=== PATIENT | male | born 1990 | race African-American/Black ===

== ENCOUNTER 2017-12-07 17:35 | Observation (INO) | payer OTHER ==
[2017-12-07 19:00] VITALS: BP 173/101; PULSE 140; RESP 20; TEMP 99.2; O2SAT 98
[2017-12-07] MEDS ORDERED: SODIUM CHLOR 0.9% 1000 ML INJ 1,000 ML IV ONE ×2 (19:00→23:15)
[2017-12-07] MEDS ORDERED: HALOPERIDOL LACTATE 5 MG/ML AMP IM ONE (19:00)
[2017-12-07] MEDS ORDERED: LORazepam 2 MG/ML VIAL IM ONE (19:00)
--- NOTE | 2017-12-07 19:14 | PD ---
HPI Chief Complaint: OD/ Ingestion Time Seen by Provider: 18:52 Travel History International Travel<30 days: No Contact w/Intl Traveler<30days: No Traveled to known affect area: No History of Present Illness HPI This patient is brought in under police Bagley act. He was found acting jittery and paranoid and confused. He is unable or unwilling to provide any history or review of systems. He is volatile and uncooperative. He refuses to have any tests done. He will require chemical and physical restraints for his and the staff safety. [facility] Social History Alcohol Use: No Tobacco Use: No Substance Use: Yes Allergies-Medications (Allergen,Severity, Reaction): Coded Allergies: No Allergy Information Available (Unverified , 12/07/17) Review of Systems ROS Limitations: Clinical Condition, Intoxication, Altered Mental Status, Uncooperative, Refused, Combative Physical Exam Narrative GENERAL: Well-nourished, well-developed patient who is agitated and hostile and combative. SKIN: Focused skin assessment reveals no rash and nodules. Skin is Warm and diaphoretic. HEAD: Abrasion to the forehead and nasal bridge. Normocephalic. EYES: Pupils equal and round. No scleral icterus. No injection or drainage. ENT: No nasal bleeding or discharge. Mucous membranes pink and moist. NECK: Trachea midline. No JVD. CARDIOVASCULAR: Regular rate and rhythm. No murmur appreciated. RESPIRATORY: No accessory muscle use. Clear to auscultation. Breath sounds equal bilaterally. GASTROINTESTINAL: Abdomen soft, non-tender, nondistended. Hepatic and splenic margins not palpable. MUSCULOSKELETAL: No obvious deformities. No clubbing. No cyanosis. No edema. NEUROLOGICAL: Awake and alert. No obvious cranial nerve deficits. Motor and sensation impossible to test. Has rapid and pressured speech. PSYCHIATRIC: Aggressive and agitated mood and affect; insight and judgment poor aggressive and agitated Data Data Last Documented VS Vital Signs Date Time Temp Pulse Resp B/P (MAP) Pulse Ox O2 Delivery O2 Flow Rate FiO2 12/07/17 23:13 106 18 120/71 (87) 97 Room Air 12/07/17 20:34 98.9 12/07/17 19:30 2.00 Orders Orders Complete Blood Count With Diff (12/07/17 18:31) Comprehensive Metabolic Panel (12/07/17 18:31) Thyroid Stimulating Hormone (12/07/17 18:31) Psych Screen (12/07/17 18:31) Drug Screen, Random Urine (12/07/17 18:31) Alcohol (Ethanol) (12/07/17 18:31) Haloperidol Inj (Haldol Inj) (12/07/17 19:00) Lorazepam Inj (Ativan Inj) (12/07/17 19:00) Restraints Violent (12/07/17 18:57) Iv Access Insert/Monitor (12/07/17 18:57) Electrocardiogram (12/07/17 ) Stamp Analyst / Telemetry SHARRON.Q8H (12/07/17 18:57) Sodium Chlor 0.9% 1000 Ml Inj (Ns 1000 M (12/07/17 19:00) Tylenol (Acetaminophen) (12/07/17 18:57) Salicylates (Aspirin) (12/07/17 18:57) Ct Brain W/O Iv Contrast(Rout) (12/07/17 ) Ct Cerv Spine W/O Contrast (12/07/17 ) Lorazepam Inj (Ativan Inj) (12/07/17 19:30) Sodium Chlor 0.9% 1000 Ml Inj (Ns 1000 M (12/07/17 23:15) Consult Psychiatry (12/07/17 ) Place In Observation (12/07/17 ) Vital Signs (Adult) Q4H (12/07/17 23:20) Neuro Checks Q4H (12/07/17 23:20) Activity Oob With Assistance (12/07/17 23:20) Stamp Analyst / Telemetry .CONTINUOUS (12/07/17 23:20) Intake + Output SHARRON.QSHIFT (12/07/17 23:20) Diet Heart Healthy (12/08/17 Breakfast) Sodium Chlor 0.9% 1000 Ml Inj (Ns 1000 M (12/07/17 23:20) Sodium Chloride 0.9% Flush (Ns Flush) (12/07/17 23:30) Sodium Chloride 0.9% Flush (Ns Flush) (12/08/17 09:00) Ondansetron Inj (Zofran Inj) (12/07/17 23:30) Comprehensive Metabolic Panel (12/08/17 06:00) Complete Blood Count With Diff (12/08/17 06:00) Scd Bilateral/Knee High SHARRON.BID (12/07/17 23:20) Benjie Bilateral/Knee High SHARRON.QSHIFT (12/07/17 23:21) Docusate Sodium-Senna (Aliyah-Colace) (12/08/17 09:00) Magnesium Hydroxide Liq (Milk Of Magnesi (12/07/17 23:30) Sennosides (Senokot) (12/07/17 23:30) Bisacodyl Supp (Dulcolax Supp) (12/07/17 23:30) Lactulose Liq (Lactulose Liq) (12/07/17 23:30) (Hub Use Only)Inp Phy Cons/Ref (12/07/17 ) Labs Laboratory Tests Test 12/07/17 19:15 12/07/17 19:30 Blood Urea Nitrogen 20 MG/DL Creatinine 1.90 MG/DL Random Glucose 105 MG/DL Total Protein 7.9 GM/DL Albumin 4.3 GM/DL Calcium Level 9.2 MG/DL Alkaline Phosphatase 125 U/L Aspartate Amino Transf (AST/SGOT) 320 U/L Alanine Aminotransferase (ALT/SGPT) 111 U/L Total Bilirubin 1.0 MG/DL Sodium Level 139 MEQ/L Potassium Level 3.6 MEQ/L Chloride Level 103 MEQ/L Carbon Dioxide Level 20.3 MEQ/L Anion Gap 16 MEQ/L Estimat Glomerular Filtration Rate 49 ML/MIN Thyroid Stimulating Hormone 3rd Gen 0.785 uIU/ML Salicylates Level LESS THAN 1.7 MG/DL Acetaminophen Level LESS THAN 2.0 MCG/ML Ethyl Alcohol Level LESS THAN 3 MG/DL White Blood Count 18.3 TH/MM3 Red Blood Count 4.53 MIL/MM3 Hemoglobin 15.0 GM/DL Hematocrit 43.2 % Mean Corpuscular Volume 95.5 FL Mean Corpuscular Hemoglobin 33.2 PG Mean Corpuscular Hemoglobin Concent 34.7 % Red Cell Distribution Width 13.0 % Platelet Count 263 TH/MM3 Mean Platelet Volume 10.1 FL Neutrophils (%) (Auto) 73.7 % Lymphocytes (%) (Auto) 14.8 % Monocytes (%) (Auto) 11.1 % Eosinophils (%) (Auto) 0.1 % Basophils (%) (Auto) 0.3 % Neutrophils # (Auto) 13.5 TH/MM3 Lymphocytes # (Auto) 2.7 TH/MM3 Monocytes # (Auto) 2.0 TH/MM3 Eosinophils # (Auto) 0.0 TH/MM3 Basophils # (Auto) 0.1 TH/MM3 CBC Comment DIFF FINAL Differential Comment MDM Medical Decision Making Medical Screen Exam Complete: Yes Emergency Medical Condition: Yes Medical Record Reviewed: Yes Differential Diagnosis Drug intoxication, alcohol intoxication, metabolic abnormality Narrative Course I have reviewed the patient's electronic medical record. I reviewed his police initiated Bagley act It is unknown at this patient has any psychiatric history. I suspect he is under the influence of drugs. Unclear what. He refuses to answer questions. He is very volatile and combative and hostile. For his safety he is placed in leather restraints and I gave him a dose of Haldol and Ativan. I have ordered an extensive workup. CBC revealed leukocytosis of 18,000 Metabolic profile reveals a few minor abnormalities but nothing emergent Alcohol levels negative Brain CT is negative Cervical spine CT shows some degenerative changes but no fracture He is yet to provide urine for tox screen After 6 hours he is still altered and not stable for either psych admission or discharge. I reviewed with hospitalist who will admit for toxic encephalopathy. He is still under Bagley act. Critical Care Narrative Aggregate critical care time was 35 minutes. Time to perform other separately billable procedures was not included in the critical care time. My time did not include minutes spent treating any other patients simultaneously or on activities that did not directly contribute to the patient's treatment. The services I provided to this patient were to treat and/or prevent clinically significant deterioration that could result in: Cardiac arrhythmia, cardiopulmonary arrest I provided critical care services requiring my management, as noted below: Chart data review, documentation time, medication orders and management, vital sign assessments/reviewing monitor data, ordering and reviewing lab tests, ordering and interpreting/reviewing x-rays and diagnostic studies, care of the patient and discussion of the patient with the admitting physicians. Diagnosis Primary Impression: Toxic metabolic encephalopathy Admitting Information Admitting Physician Requests: Vamsi Ahmadi MD Dec 07, 2017 19:14
[2017-12-07 19:30] VITALS: BP 126/61; PULSE 128; RESP 14; O2SAT 97
[2017-12-07] MEDS ORDERED: LORazepam 2 MG/ML VIAL IV PUSH ONE (19:30)
[2017-12-07 20:03] LABS: AUTOMATED NEUTROPHIL # 13.5 TH/MM3 (1.8-7.7); BASOPHIL # 0.1 TH/MM3 (0-0.2); BASOPHIL % 0.3 % (0.0-2.0); EOSINOPHIL % 0.1 % (0.0-4.0); HEMATOCRIT 43.2 % (39.0-51.0); LYMPH % 14.8 % (9.0-44.0); LYMPHOCYTE # 2.7 TH/MM3 (1.0-4.8); MEAN CELL VOLUME 95.5 FL (80.0-100.0); MEAN CORPUSCULAR HEMOGLOBIN 33.2 PG (27.0-34.0); MEAN CORPUSCULAR HGB CONC 34.7 % (32.0-36.0); MEAN PLATELET VOLUME 10.1 FL (7.0-11.0); MONO % 11.1 % (0.0-8.0); NEUT % 73.7 % (16.0-70.0); PLATELET COUNT 263 TH/MM3 (150-450); RED BLOOD COUNT 4.53 MIL/MM3 (4.50-5.90); WHITE BLOOD COUNT 18.3 TH/MM3 (4.0-11.0)
--- NOTE | 2017-12-07 20:33 | RADRPT ---
EXAM DATE/TIME: 12/07/2017 20:16 [facility] COMPARISON: No previous studies available for comparison. INDICATIONS : Trauma, possible seizure today. RADIATION DOSE: 56.35 CTDIvol (mGy) MEDICAL HISTORY : Non-responsive. SURGICAL HISTORY : Non-responsive. ENCOUNTER: Initial ACUITY: 1 day PAIN SCALE: Non-responsive LOCATION: Bilateral head TECHNIQUE: Multiple contiguous axial images were obtained of the head. Using automated exposure control and adj ustment of the mA and/or kV according to patient size, radiation dose was kept as low as reasonably a chievable to obtain optimal diagnostic quality images. DICOM format image data is available electro nically for review and comparison. FINDINGS: CEREBRUM: The ventricles are normal for age. No evidence of midline shift, mass lesion, hemorrhage or acute in farction. No extra-axial fluid collections are seen. POSTERIOR FOSSA: The cerebellum and brainstem are intact. The 4th ventricle is midline. The cerebellopontine angle i s unremarkable. EXTRACRANIAL: The visualized portion of the orbits is intact. SKULL: The calvaria is intact. No evidence of skull fracture. CONCLUSION: No acute disease. Sonido Barrow MD on December 07, 2017 at 20:30 Board Certified Radiologist. This report was verified electronically.
[2017-12-07 20:34] VITALS: BP 182/95; PULSE 83; RESP 15; TEMP 98.9; O2SAT 99
[2017-12-07 20:35] LABS: ALT (GPT) 111 U/L (12-78)
--- NOTE | 2017-12-07 20:39 | RADRPT ---
EXAM DATE/TIME: 12/07/2017 20:18 [facility] COMPARISON: No previous studies available for comparison. INDICATIONS : Trauma, possible seizure today. RADIATION DOSE: 24.00 CTDIvol (mGy) MEDICAL HISTORY : Non-responsive. SURGICAL HISTORY : Non-responsive. ENCOUNTER: Initial ACUITY: 1 day PAIN SCALE: Non-responsive LOCATION: Bilateral neck TECHNIQUE: Volumetric scanning of the cervical spine was performed. Multiplanar reconstructions in the sagittal, coronal and oblique axial planes were performed. Using automated exposure control and adjustment o f the mA and/or kV according to patient size, radiation dose was kept as low as reasonably achievable to obtain optimal diagnostic quality images. DICOM format image data is available electronically f or review and comparison. FINDINGS: VERTEBRAE: Normal vertebral body height. ALIGNMENT: Scoliosis of the cervical spine is noted. No evidence of subluxation. C2-C3: The bony spinal canal is normal in size. No evidence of disc bulge or herniation. The neural forami na are bilaterally patent. C3-C4: The bony spinal canal is normal in size. No evidence of disc bulge or herniation. The neural forami na are bilaterally patent. C4-C5: The bony spinal canal is normal in size. No evidence of disc bulge or herniation. The neural forami na are bilaterally patent. C5-C6: The bony spinal canal is normal in size. No evidence of disc bulge or herniation. The neural forami na are bilaterally patent. C6-C7: The bony spinal canal is normal in size. No evidence of disc bulge or herniation. The neural forami na are bilaterally patent. C7-T1: The bony spinal canal is normal in size. No evidence of disc bulge or herniation. The neural forami na are bilaterally patent. CONCLUSION: 1. No acute fracture or prevertebral soft tissue swelling. 2. Scoliosis of the cervical spine. Sonido Barrow MD on December 07, 2017 at 20:35 Board Certified Radiologist. This report was verified electronically.
[2017-12-07 20:44] LABS: ALKALINE PHOSPHATASE 125 U/L (45-117); TOTAL PROTEIN 7.9 GM/DL (6.4-8.2)
[2017-12-07 20:47] LABS: ALBUMIN 4.3 GM/DL (3.4-5.0); AST (GOT) 320 U/L (15-37); BICARBONATE 20.3 MEQ/L (21.0-32.0); BLOOD UREA NITROGEN 20 MG/DL (7-18); CALCIUM 9.2 MG/DL (8.5-10.1); CHLORIDE 103 MEQ/L (98-107); GLOMERULAR FILTRATION RATE 49 ML/MIN (>89); GLUCOSE,RANDOM 105 MG/DL (74-106); SODIUM (NA) 139 MEQ/L (136-145)
[2017-12-07 21:01] VITALS: BP 131/71; PULSE 111; RESP 12; O2SAT 96
[2017-12-07 23:13] VITALS: BP 120/71; PULSE 106; RESP 18; O2SAT 97
--- NOTE | 2017-12-07 23:22 | HHI.HP ---
[facility] Unknown Admission Diagnosis Diagnoses: (1) Encephalopathy Diagnosis: Principal (2) Drug intoxication Diagnosis: Principal (3) Renal insufficiency Diagnosis: Principal (4) Elevated LFTs Diagnosis: Principal Travel History International Travel<30 Days: No Contact w/Intl Traveler <30 Da: No Traveled to Known Affected Are: No History of Present Illness This is a 37-year-old male with unknown PMH was brought to the ER by Police under Bagley Act secondary to confusion, paranoia and apparent drug ingestion. On arrival, patient was significantly agitated, uncooperative and combative. He required physical and chemical restraints. Has been monitored in ER for several hours w/ persistent lethargy. Pt unable to be medically cleared at this time, therefore we were asked to admit. Unable to obtain any history from patient due to acute encephalopathy. On arrival, BP 182/95, HR 128, O2 sat 99% on RA, Afebrile. BP currently 120/71, HR 106. WBC 18.3. Creatinine 1.90, no previous labs for comparison. LFTs elevated, no previous labs for comparison. Alcohol negative. CT Head with no acute findings. CT C-spine negative. S/p IVF in ER. Review of Systems Except as stated in HPI: all other systems reviewed are Neg ROS: Unable to obtain secondary to AMS. Past Family Social History Past Medical History PMH: None Past Surgical History PAST SURGICAL HISTORY: Unknown Allergies: Coded Allergies: No Allergy Information Available (Unverified , 12/07/17) Family History PAST FAMILY HISTORY: Unknown Social History PAST SOCIAL HISTORY: Unknown Physical Exam Vital Signs Vital Signs Date Time Temp Pulse Resp B/P (MAP) Pulse Ox O2 Delivery O2 Flow Rate FiO2 12/07/17 23:13 106 18 120/71 (87) 97 Room Air 12/07/17 21:01 111 12 131/71 (91) 96 Room Air 12/07/17 20:34 98.9 83 15 182/95 (124) 99 Room Air 12/07/17 19:30 128 14 126/61 (82) 97 Nasal Cannula 2.00 12/07/17 19:26 133 12/07/17 19:00 99.2 140 20 173/101 (125) 98 Physical Exam PE: GENERAL: Middle-aged male in no acute distress, sleeping, rouses to voice, not answering questions. HEENT: PERRLA, EOMI. No scleral icterus or conjunctival pallor. No lid lag or facial droop. CARDIOVASCULAR: Regular rate and rhythm. No obvious murmurs to auscultation. No chest tenderness to palpation. RESPIRATORY: No obvious rhonchi or wheezing. Clear to auscultation. Breath sounds equal bilaterally. GASTROINTESTINAL: Abdomen soft, non-tender, nondistended. BS normal. MUSCULOSKELETAL: Extremities without clubbing, cyanosis, or edema. No obvious deformities. NEUROLOGICAL: Awake, alert and oriented x4. No focal neurologic deficits. Moving both upper and lower extremities spontaneously. Laboratory Laboratory Tests Test 12/07/17 19:15 12/07/17 19:30 Blood Urea Nitrogen 20 Creatinine 1.90 Random Glucose 105 Total Protein 7.9 Albumin 4.3 Calcium Level 9.2 Alkaline Phosphatase 125 Aspartate Amino Transf (AST/SGOT) 320 Alanine Aminotransferase (ALT/SGPT) 111 Total Bilirubin 1.0 Sodium Level 139 Potassium Level 3.6 Chloride Level 103 Carbon Dioxide Level 20.3 Anion Gap 16 Estimat Glomerular Filtration Rate 49 Thyroid Stimulating Hormone 3rd Gen 0.785 Salicylates Level LESS THAN 1.7 Acetaminophen Level LESS THAN 2.0 Ethyl Alcohol Level LESS THAN 3 White Blood Count 18.3 Red Blood Count 4.53 Hemoglobin 15.0 Hematocrit 43.2 Mean Corpuscular Volume 95.5 Mean Corpuscular Hemoglobin 33.2 Mean Corpuscular Hemoglobin Concent 34.7 Red Cell Distribution Width 13.0 Platelet Count 263 Mean Platelet Volume 10.1 Neutrophils (%) (Auto) 73.7 Lymphocytes (%) (Auto) 14.8 Monocytes (%) (Auto) 11.1 Eosinophils (%) (Auto) 0.1 Basophils (%) (Auto) 0.3 Neutrophils # (Auto) 13.5 Lymphocytes # (Auto) 2.7 Monocytes # (Auto) 2.0 Eosinophils # (Auto) 0.0 Basophils # (Auto) 0.1 CBC Comment DIFF FINAL Differential Comment Result Diagram: 12/07/17192912/07/171914 Caprini VTE Risk Assessment Caprini VTE Risk Assessment: No/Low Risk (score <= 1) Caprini Risk Assessment Model Point Value = 1 Point Value = 2 Point Value = 3 Point Value = 5 Age 41-60 Minor surgery BMI > 25 kg/m2 Swollen legs Varicose veins or History of unexplained or recurrent spontaneous Oral contraceptives or hormone replacement Sepsis (< 1 month) Serious lung disease, including pneumonia (< 1 month) Abnormal pulmonary function Acute myocardial infarction Congestive heart failure (< 1 month) History of inflammatory bowel disease Medical patient at bed rest Age 61-74 Arthroscopic surgery Major open surgery (> 45 min) Laparoscopic surgery (> 45 min) Malignancy Confined to bed (> 72 hours) Immobilizing plaster cast Central venous access Age >= 75 History of VTE Family history of VTE Factor V Leiden Prothrombin [id number] Lupus anticoagulant Anticardiolipin antibodies Elevated serum homocysteine Heparin-induced thrombocytopenia Other congenital or acquired thrombophilia Stroke (< 1 month) Elective arthroplasty Hip, pelvis, or leg fracture Acute spinal cord injury (< 1 month) Prophylaxis Regimen Total Risk Factor Score Risk Level Prophylaxis Regimen 0-1 Low Early ambulation 2 Moderate Order ONE of the following: *Sequential Compression Device (SCD) *Heparin 5000 units SQ BID 3-4 Higher Order ONE of the following medications: *Heparin 5000 units SQ TID *Enoxaparin/Lovenox 40 mg SQ daily (WT < 150 kg, CrCl > 30 mL/min) *Enoxaparin/Lovenox 30 mg SQ daily (WT < 150 kg, CrCl > 10-29 mL/min) *Enoxaparin/Lovenox 30 mg SQ BID (WT < 150 kg, CrCl > 30 mL/min) AND/OR *Sequential Compression Device (SCD) 5 or more Highest Order ONE of the following medications: *Heparin 5000 units SQ TID (Preferred with Epidurals) *Enoxaparin/Lovenox 40 mg SQ daily (WT < 150 kg, CrCl > 30 mL/min) *Enoxaparin/Lovenox 30 mg SQ daily (WT < 150 kg, CrCl > 10-29 mL/min) *Enoxaparin/Lovenox 30 mg SQ BID (WT < 150 kg, CrCl > 30 mL/min) AND *Sequential Compression Device (SCD) Assessment and Plan Problem List: (1) Encephalopathy ICD Code: G93.40 - Encephalopathy, unspecified (2) Drug intoxication ICD Code: F19.929 - Other psychoactive substance use, unspecified with intoxication, unspecified (3) Renal insufficiency ICD Code: N28.9 - Disorder of kidney and ureter, unspecified (4) Elevated LFTs ICD Code: R79.89 - Other specified abnormal findings of blood chemistry Assessment and Plan A/P: 1. Encephalopathy: secondary to acute drug intoxication and pharmacologic sedation. CT Head w/ no acute findings, CT C-Spine negative, images reviewed by me. Admit for Observation, Neuro Checks. IVF for hydration 2. Drug Intoxication: acute drug intoxication w/ paranoia/combative/ aggressive behavior, brought in by PD under Bagley Act. Urine Drug Screen pending. Consult Psych for further evaluation. Ativan prn as needed. 3. Renal Insufficiency: Creatinine 1.90, no previous labs for comparison, presumably new. Check UA. UDS pending. IVF for hydration, repeat labs in a.m. for trend. 4. Elevated LFTs: AST 320, ALT 111, ALP 125, no previous labs for comparison. Likely secondary to drug use/intoxication. Repeat labs in a.m. 5. DVT Prophylaxis: SCD/teds. 6. family services worker DC planning as needed. 7. Case discussed at length with ER physician, labs/records/imaging reviewed by me. Sachi Houston MD Dec 07, 2017 23:22
[2017-12-07] MEDS ORDERED: LACTULOSE SYRUP 20 GM/30 ML CUP PO PRN (23:30)
[2017-12-07] MEDS ORDERED: SENNOSIDES 8.6 MG TAB PO PRN (23:30)
[2017-12-07] MEDS ORDERED: BISACODYL 10 MG SUPP RECTAL PRN (23:30)
[2017-12-07] MEDS ORDERED: MAGNESIUM HYDROXIDE SUSP 30 ML CUP PO PRN (23:30)
[2017-12-07] MEDS ORDERED: SODIUM CHLORIDE 0.9% FLUSH 10 ML FLUSH IV FLUSH PRN (23:30)
[2017-12-07] MEDS ORDERED: ONDANSETRON HCL 4 MG/2 ML VIAL IVP PRN (23:30)
[2017-12-08] MEDS: SODIUM CHLOR 0.9% 1000 ML INJ 1,000 ML IV SCH ×2 (00:04→08:29)
[2017-12-08] MEDS ORDERED: LORazepam 2 MG/ML VIAL IV PUSH PRN (01:00)
[2017-12-08 05:43] VITALS: PULSE 104
[2017-12-08 07:19] VITALS: PULSE 110
[2017-12-08 08:53] VITALS: BP 123/75; PULSE 104; RESP 16; TEMP 98; O2SAT 98
[2017-12-08] MEDS ORDERED: DOCUSATE SODIUM 50 MG/SENNA 8.6 MG TAB PO SCH (09:00)
[2017-12-08] MEDS ORDERED: SODIUM CHLORIDE 0.9% FLUSH 10 ML FLUSH IV FLUSH SCH (09:00)
--- NOTE | 2017-12-08 11:01 | PD.PSY.CON ---
Provisional Diagnosis Admission Date Dec 07, 2017 at 23:21 [place] I. Unspecified psychosis, R/O substance-induced psychosis, r/o paranoid schizophrenia, MDMA use disorder [place] II. Deferred [place] III. 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 On arrival, patient was significantly agitated, uncooperative and combative. He required physical and chemical restraints. Patient was medicated with Haldol 5 mg and Ativan 4 mg in order to calm him down. Has been monitored in ER for several hours w/ persistent lethargy. Pt unable to be medically cleared at this time, therefore we were asked to admit. Unable to obtain any history from patient due to acute encephalopathy. On arrival, BP 182/95, HR 128, O2 sat 99% on RA, Afebrile. BP currently 120/71, HR 106. WBC 18.3. Creatinine 1.90, no previous labs for comparison. LFTs elevated, no previous labs for comparison. Alcohol negative. CT Head with no acute findings. CT C-spine negative. S/p IVF in ER. Consulted to psychiatry to assess the etiology of current psychosis. On psychiatric evaluation patient is still sedated, minimally engageable in a conversation, poorly cooperative. However, the patient states that the reason he was brought to the hospital is because the police has been following him "for no reason", and he was finally arrested "and physically beat up"by the police. Patient says that he is from [place] he came to the [facility] "for business". Patient seems to be guarded, kind of confused, oppositional, may be internally preoccupied, he denies depressive symptoms, he denies anxiety, he denies salome and psychosis, he denies suicidal and homicidal ideation, he denies visual and auditory hallucinations. Patient is oriented in person, partially oriented in time and place. I got collateral information from his mother, Diaz Eric, , she says that she saw her son about 4 days ago and she noted that she was acting strangely. 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 She says that after that phone call he never called back he was not picking up his phone and she has been very concerned. She says that the patient doesn't have any previous psychiatric history, no previous suicidal attempts, she describes the patient as a normal person, never had any psychotic episode, she says that she knows he uses drugs sometimes. She denies any family psychiatric history in the family. She is right now in [place] and will travel to [facility] with his father to help in everything is possible. Review of Systems Constitutional: DENIES: Diaphoretic episodes, Fatigue, Fever, Weight gain, Weight loss, Chills, Dizziness, Change in appetite, Night Sweats Endocrine: DENIES: Heat/cold intolerance, Polydipsia, Polyuria, Polyphagia Eyes: DENIES: Blurred vision, Diplopia, Eye inflammation, Eye pain, Vision loss , Photosensitivity, Double Vision Ears, nose, mouth, throat: DENIES: Tinnitus, Hearing loss, Vertigo, Nasal discharge, Oral lesions, Throat pain, Hoarseness, Ear Pain, Running Nose, Epistaxis, Sinus Pain, Toothache, Odynophagia Respiratory: DENIES: Apneas, Cough, Snoring, Wheezing, Hemoptysis, Sputum production, Shortness of breath Cardiovascular: DENIES: Chest pain, Palpitations, Syncope, Dyspnea on Exertion , PND, Lower Extremity Edema, Orthopnea, Claudication Gastrointestinal: DENIES: Abdominal pain, Black stools, Bloody stools, Constipation, Diarrhea, Nausea, Vomiting, Difficulty Swallowing, Anorexia Genitourinary: DENIES: Sexual dysfunction, Urinary frequency, Urinary incontinence, Urgency, Hematuria, Dysuria, Nocturia, Penile Discharge, Testicular Pain, Testicular Swelling Integumentary: DENIES: Abnormal pigmentation, Nail changes, Pruritus, Rash Hematologic/lymphatic: DENIES: Bruising, Lymphadenopathy Immunologic/allergic: DENIES: Eczema, Urticaria Neurologic: DENIES: Abnormal gait, Headache, Localized weakness, Paresthesias, Seizures, Speech Problems, Tremor, Poor Balance Psychiatric: COMPLAINS OF: Confusion, Delusions, DENIES: Anxiety, Mood changes , Depression, Hallucinations, Agitation, Suicidal Ideation, Homicidal Ideation Past Family Social History Coded Allergies: No Allergy Information Available (Unverified , 12/07/17) Current Medications Medications (Trade) Dose Ordered Sig/Leda Route Start Time Stop Time Status Last Admin Sodium Chloride 1,000 ml @ 100 mls/hr Q10H IV 12/07/17 23:20 12/08/17 08:29 (NS Flush) 2 ml UNSCH PRN IV FLUSH 12/07/17 23:30 (NS Flush) 2 ml BID IV FLUSH 12/08/17 09:00 (Zofran Inj) 4 mg Q6H PRN IVP 12/07/17 23:30 (Aliyah-Colace) 1 tab BID PO 12/08/17 09:00 (Milk Of Magnesia Liq) 30 ml Q12H PRN PO 12/07/17 23:30 (Senokot) 17.2 mg Q12H PRN PO 12/07/17 23:30 (Dulcolax Supp) 10 mg DAILY PRN RECTAL 12/07/17 23:30 (Lactulose Liq) 30 ml DAILY PRN PO 12/07/17 23:30 (Ativan Inj) 0.5 mg Q2H PRN IV PUSH 12/08/17 01:00 Family Psych History No family psychiatric history Social History Patient was born and raised in [place], he lives in [place], his single, 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 2) Family support, no previous psychiatric history Physical Exam No tremors, no EPS, even though patient is sedated and psychomotor retarded. Vital Signs Vital Signs Date Time Temp Pulse Resp B/P (MAP) Pulse Ox O2 Delivery O2 Flow Rate FiO2 12/08/17 08:53 98.0 104 16 123/75 (91) 98 12/07/17 23:13 Room Air 12/07/17 19:30 2.00 I/O 12/08/17 12/08/17 12/09/17 08:00 16:00 00:00 Intake Total 280 ml Balance 280 ml Lab Results Test 12/07/17 19:15 12/07/17 19:30 Blood Urea Nitrogen 20 MG/DL Creatinine 1.90 MG/DL Random Glucose 105 MG/DL Total Protein 7.9 GM/DL Albumin 4.3 GM/DL Calcium Level 9.2 MG/DL Alkaline Phosphatase 125 U/L Aspartate Amino Transf (AST/SGOT) 320 U/L Alanine Aminotransferase (ALT/SGPT) 111 U/L Total Bilirubin 1.0 MG/DL Sodium Level 139 MEQ/L Potassium Level 3.6 MEQ/L Chloride Level 103 MEQ/L Carbon Dioxide Level 20.3 MEQ/L Anion Gap 16 MEQ/L Estimat Glomerular Filtration Rate 49 ML/MIN Thyroid Stimulating Hormone 3rd Gen 0.785 uIU/ML Salicylates Level LESS THAN 1.7 MG/DL Acetaminophen Level LESS THAN 2.0 MCG/ML Ethyl Alcohol Level LESS THAN 3 MG/DL White Blood Count 18.3 TH/MM3 Red Blood Count 4.53 MIL/MM3 Hemoglobin 15.0 GM/DL Hematocrit 43.2 % Mean Corpuscular Volume 95.5 FL Mean Corpuscular Hemoglobin 33.2 PG Mean Corpuscular Hemoglobin Concent 34.7 % Red Cell Distribution Width 13.0 % Platelet Count 263 TH/MM3 Mean Platelet Volume 10.1 FL Neutrophils (%) (Auto) 73.7 % Lymphocytes (%) (Auto) 14.8 % Monocytes (%) (Auto) 11.1 % Eosinophils (%) (Auto) 0.1 % Basophils (%) (Auto) 0.3 % Neutrophils # (Auto) 13.5 TH/MM3 Lymphocytes # (Auto) 2.7 TH/MM3 Monocytes # (Auto) 2.0 TH/MM3 Eosinophils # (Auto) 0.0 TH/MM3 Basophils # (Auto) 0.1 TH/MM3 CBC Comment DIFF FINAL Differential Comment Mental Status Examination Appearance: Disheveled Consciousness: Alert Orientation: Person, Place, Date/Time Motor Activity: Normal gait Speech: Slow, Stuttering Language: Adequate Fund of Knowledge: Adequate Attention and Concentration: Adequate Memory: Impaired Mood: Oppositional Affect: Irritable Thought Process & Associations: Loose associations, Disorganized Thought Content: Bizarre thinking, Delusional Hallucination Type: None Delusion Type: Paranoid Suicidal Ideation: No Suicidal Plan: No Suicidal Intention: No Homicidal Ideation: No Homicidal Plan: No Homicidal Intention: No Insight: Poor Judgment: Poor Assessment & Plan Problem List: (1) Unspecified psychosis ICD Codes: F29 - Unspecified psychosis not due to a substance or known physiological condition Assessment & Plan: On psychiatric evaluation today the patient is poorly cooperative, minimally engageable in a conversation due to level of sedation. Patient had to be medicated with Haldol 5 mg and Ativan 4 mg IM in order to calm him down and he also had to be physically restrained in the ER due to his agitation and combative behavior on arrival. As per [place] act the patient was found acting bizarrely and very paranoid by law enforcement. As per mother, the patient has been disappeared in the last days, making phone calls to his family and that he has been followed "by people"and acting bizarrely. Patient admits that he has been using Omaira in the last days. During my evaluation patient is sedated, but son level of internal preoccupation, confusion and paranoia is visible. Patient has an increased level of danger to self and others due to his psychosis at this moment and he this to be psychiatrically admitted for stabilization and safety. Patient will benefit of a low dose of antipsychotic, Risperdal 1 mg twice a day to help him with psychosis. Please, transfer patient to psychiatry once medically appropriate. Assessment & Plan Estimated LOS: Jorge L Silva MD Dec 08, 2017 11:01
[2017-12-08 13:01] VITALS: BP 112/69; PULSE 108; RESP 18; TEMP 97.7; O2SAT 97
[2017-12-08 13:50] VITALS: PULSE 95
--- NOTE | 2017-12-08 15:51 | HHI.PR ---
Subjective Remarks Follow-up visit encephalopathy possibly secondary to acute drug intoxication, acute kidney injury, drug intoxication, aggressive behavior, paranoia. Patient seen and examined today. Mother at the bedside. Patient is oriented to city, hospital and self. Is able to name his mother. Patient states that he wants to get out of the hospital. He became aggressive and states that " if I pull off my IV and everything and walk away republican going to get me." Patient states that he was framed up. States that "they are all after me. " Patient reoriented and reassured. He will be transferred to inpatient medical psychiatry unit. Discuss condition and plan with mother. As per mother, patient is supposed to visit her grandmother who is dying in [place]. He was driving from [place] and stop by in [facility] because his truck was not working. 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 He has been calling his mother and father for a while and they lost track of him. As per mother, they finally found him and he was left with his father however the father went back to [place] and he went missing again in [facility]. Patient mother got a call from the hospital and he found out that he was admitted. Mother is very concerned regarding patient's behavior and the drugs that he might have taken. States that she was told it was "Omaira, ecstasy." Objective Vitals Vital Signs Date Time Temp Pulse Resp B/P (MAP) Pulse Ox O2 Delivery O2 Flow Rate FiO2 12/08/17 13:50 95 12/08/17 13:01 97.7 108 18 112/69 (83) 97 12/08/17 08:53 98.0 104 16 123/75 (91) 98 12/08/17 07:19 110 12/08/17 05:43 104 12/08/17 00:33 12/07/17 23:13 106 18 120/71 (87) 97 Room Air 12/07/17 21:01 111 12 131/71 (91) 96 Room Air 12/07/17 20:34 98.9 83 15 182/95 (124) 99 Room Air 12/07/17 19:30 128 14 126/61 (82) 97 Nasal Cannula 2.00 12/07/17 19:26 133 12/07/17 19:00 99.2 140 20 173/101 (125 98 I/O 12/07/17 12/07/17 12/07/17 12/08/17 12/08/17 12/08/17 07:00 15:00 23:00 07:00 15:00 23:00 Intake Total 1280 ml Balance 1280 ml Intake IV Total 1280 ml Result Diagram: 12/07/17 1930 12/07/17 1915 Imaging Last Impressions Head CT 12/07/17 0000 Signed Impressions: Service Date/Time: Thursday, December 07, 2017 20:16 - CONCLUSION: No acute disease. Sonido Barrow MD Cervical Spine CT 12/07/17 0000 Signed Impressions: Service Date/Time: Thursday, December 07, 2017 20:18 - CONCLUSION: 1. No acute fracture or prevertebral soft tissue swelling. 2. Scoliosis of the cervical spine. Sonido Barrow MD Objective Remarks GENERAL: This is a well-nourished, well-developed patient, in no apparent distress. SKIN: Warm and dry. HEENT: Normocephalic. Pupils equal round and reactive. Nose without bleeding. Airway patent. Left facial area with abrasion and some swelling in the forehead NECK: Trachea midline. CARDIOVASCULAR: Regular rate and rhythm without murmurs, gallops, or rubs. RESPIRATORY: Clear to auscultation. Breath sounds equal bilaterally. No wheezes , rales, or rhonchi. GASTROINTESTINAL: Abdomen soft, non-tender, nondistended. Bowel Sounds normoactive x4. : Catheter in place draining yellow urine. MUSCULOSKELETAL: Extremities without clubbing, cyanosis, or edema. NEUROLOGICAL: Drowsy. Oriented to city and state, person. Moves all extremities. Normal speech. A/P Problem List: (1) Encephalopathy ICD Code: G93.40 - Encephalopathy, unspecified (2) Drug intoxication ICD Code: F19.929 - Other psychoactive substance use, unspecified with intoxication, unspecified (3) Renal insufficiency ICD Code: N28.9 - Disorder of kidney and ureter, unspecified (4) Elevated LFTs ICD Code: R79.89 - Other specified abnormal findings of blood chemistry Assessment and Plan Patient is a 37-year-old male with no known primary medical history who came in under [place] act by police department secondary to confusion , paranoia and apparent drug ingestion. Encephalopathy Drug intoxication - Aggressive behavior - CT of the head showed no acute disease - CT of the cervical spine showed 1. No acute fracture or prevertebral soft tissue swelling. 2. Scoliosis of the cervical spine. - Toxicology showed salicylate less than 1.7, acetaminophen less than 2.0, ethyl alcohol less than 3 - Psychiatry consulted for further evaluation - Continue with neuro checks. - Check urine drug screen, UA. - Ativan when necessary Acute kidney injury - Avoid nephrotoxins - Continue IV fluid for hydration - Recheck labs in a.m. Cleared for transfer to medical psychiatry unit. Continue with IV fluids NS @ 100ml/hr. Check BMP tomorrow. DVT prop SCD Discharge Planning Plan to discharge to medical psychiatry unit. Rizwana Fortune Dec 08, 2017 15:51
[2017-12-08 16:26] VITALS: BP 99/56; PULSE 95; RESP 16; TEMP 98.3; O2SAT 97
[2017-12-08] MEDS ORDERED: ACETAMINOPHEN 325 MG TAB PO ONE (17:00)
[2017-12-08 17:36] LABS: BLOOD, URINE NEG (NEG); GLUCOSE,URINE NEG (NEG); HYALINE CAST, URINE 7 /lpf (RARE); KETONE, URINE 40 mg/dL (NEG); MUCUS URINE FEW /lpf (OCC); NITRITE,URINE NEG (NEG); SPERM, URINE OCC; SQUAMOUS EPITHELIAL CELL URINE <1 /hpf (0-5); URINE COLOR YELLOW (YELLW/STRAW); URINE LEUKOCYTE ESTERASE NEG (NEG)
[2017-12-08 17:39] LABS: BILIRUBIN, URINE NEG (NEG)
--- NOTE | 2017-12-09 00:48 | EKG ---
Date Performed: 12/07/2017 Time Performed: 19:40:29 PTAGE: 37 years EKG: SINUS TACHYCARDIA ABNORMAL RHYTHM ECG NO PREVIOUS TRACING DOCTOR: Tyler Rogers Interpretating Date/Time 12/09/2017 00:47:14
== END 2017-12-08 19:57 ==
LOC: EDBD → NEPD 17:35 → NEDA 23:21 → NEPFCDU 12-08 00:36
PROVIDERS: ADMIT Hospitalist; ATTEND Hospitalist
DX: G92 Toxic encephalopathy (principal); F22 Delusional disorders; R45.1 Restlessness and agitation; Z78.1 Physical restraint status; F19.129 Other psychoactive substance abuse with intoxication, unspecified; N17.9 Acute kidney failure, unspecified; R79.89 Other specified abnormal findings of blood chemistry; R00.0 Tachycardia, unspecified; R94.31 Abnormal electrocardiogram [ECG] [EKG]; M41.9 Scoliosis, unspecified; Z03.89 Encounter for observation for other suspected diseases and conditions ruled out
CPT/HCPCS: 70450; 72125; 80053; 80307; 81001; 84443; 85025; 93005; 96361; 96374; 96375; 99291; G0378; J1630; J2060; J7030

== ENCOUNTER 2017-12-08 16:56 | Inpatient (IN) | payer SELFPAY ==
[~2017-12-08] VITALS: Ht 182.9 cm; Wt 75.1 kg
[2017-12-08 19:45] VITALS: BP 122/68; PULSE 94; RESP 18; TEMP 99.1
[2017-12-09 05:37] VITALS: BP 105/62; PULSE 79; RESP 18; TEMP 98.4; O2SAT 95
[2017-12-09] MEDS ORDERED: ACETAMINOPHEN 325 MG TAB PO PRN (10:30)
[2017-12-09] MEDS ORDERED: MAGNESIUM HYDROXIDE SUSP 30 ML CUP PO PRN (10:30)
[2017-12-09] MEDS ORDERED: ALUMINUM/MAGNESIUM/SIMETH 30 ML CUP PO PRN (10:30)
[2017-12-09] MEDS ORDERED: BENZTROPINE MESYLATE 2 MG/2 ML VIAL IM PRN (10:30)
[2017-12-09] MEDS ORDERED: diphenhydrAMINE HCL 50 MG CAP PO PRN (10:30)
[2017-12-09] MEDS ORDERED: NICOTINE 21 MG/24 HR PATCH T-DERMAL PRN (10:30)
[2017-12-09] MEDS ORDERED: BENZTROPINE MESYLATE 1 MG TAB PO PRN (10:30)
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
[2017-12-09] MEDS ORDERED: REMOVE OLD NICODERM (NICOTINE) PATCH T-DERMAL PRN (10:45)
[2017-12-09 17:12] VITALS: BP 166/85; PULSE 99; RESP 18; TEMP 96.5; O2SAT 98
[2017-12-10 05:45] VITALS: BP 111/66; PULSE 66; RESP 18; TEMP 98.2; O2SAT 98
[2017-12-10 08:06] LABS: BASOPHIL % 0.6 % (0.0-2.0); EOSINOPHIL # 0.1 TH/MM3 (0-0.4); EOSINOPHIL % 1.8 % (0.0-4.0); HEMATOCRIT 40.1 % (39.0-51.0); HEMOGLOBIN 13.9 GM/DL (13.0-17.0); LYMPH % 24.7 % (9.0-44.0); LYMPHOCYTE # 1.5 TH/MM3 (1.0-4.8); MEAN CELL VOLUME 95.8 FL (80.0-100.0); MEAN CORPUSCULAR HEMOGLOBIN 33.2 PG (27.0-34.0); MEAN CORPUSCULAR HGB CONC 34.6 % (32.0-36.0); MEAN PLATELET VOLUME 9.3 FL (7.0-11.0); MONO % 8.1 % (0.0-8.0); MONOCYTE # 0.5 TH/MM3 (0-0.9); NEUT % 64.8 % (16.0-70.0); PLATELET COUNT 200 TH/MM3 (150-450); RED BLOOD COUNT 4.19 MIL/MM3 (4.50-5.90); RED CELL DISTRIBUTION WIDTH 12.9 % (11.6-17.2); WHITE BLOOD COUNT 6.2 TH/MM3 (4.0-11.0)
[2017-12-10 08:26] LABS: ALBUMIN 3.2 GM/DL (3.4-5.0); ALT (GPT) 80 U/L (12-78); AST (GOT) 104 U/L (15-37); BICARBONATE 29.9 MEQ/L (21.0-32.0); BLOOD UREA NITROGEN 6 MG/DL (7-18); CALCIUM 8.5 MG/DL (8.5-10.1); CHLORIDE 106 MEQ/L (98-107); CREATININE 0.74 MG/DL (0.60-1.30); GLOMERULAR FILTRATION RATE 144 ML/MIN (>89); GLUCOSE,RANDOM 83 MG/DL (74-106); SODIUM (NA) 141 MEQ/L (136-145)
[2017-12-10 08:47] LABS: ALKALINE PHOSPHATASE 93 U/L (45-117); TOTAL BILIRUBIN ADULT 0.3 MG/DL (0.2-1.0); TOTAL PROTEIN 6.5 GM/DL (6.4-8.2)
--- NOTE | 2017-12-10 10:00 | HHI.DS ---
Psychiatry Discharge Summary Inpatient Psychiatric care?: Yes Advance Directive: No Reason Not Provided: none Mental Health AdvanceDirective: No Health Care Proxy: No Admission Admission Date Dec 08, 2017 at 20:00 Admission Diagnosis: (1) Adjustment disorder, unspecified ICD Code: F43.20 - Adjustment disorder, unspecified Brief History Mr. Eric is a 37 year-old male with no reported psychiatric history who was brought to the emergency department under a [place] act by law enforcement alleging that the patient was "acting jittery and paranoid." Patient was admitted to the medical unit for observation out of concern for some sort of encephalopathic process. The patient was seen in consultation by Dr. Reyes who obtain collateral information from family. Reviewing the electronic medical record, I note this is patient's first visit to [facility]. Patient seen and examined with nurse. Chart reviewed. Case discussed with nursing staff. On my examination today, the patient is a somewhat vague historian. He says that he needs to be discharged soon from the hospital to attend family meetings. He describes his mood as "normal." He denies any hopelessness, worthlessness or morbid guilt or other depressive symptoms. He denies any racing thoughts, increased goal-directed activity or other hypomanic/ manic symptoms. He reports that his sleep and appetite are fair. He denies any suicidal or homicidal ideation. He denies any audiovisual hallucinations. I can elicit no delusional material. He apparently lives in [place] and can provide only a very limited explanation for how he came to be in this area. He says that he was driving up to attend some of these family meetings and somehow lost track of his car. The remainder of the psychiatric ROS is negative. The patient complains of some bilateral foot pain, noting that he has been walking a lot, but otherwise has no physical complaints. Past psychiatric history: The patient denies a history of psychiatric diagnosis. He denies a history of inpatient or outpatient psychiatric treatment. He denies a history of suicide attempts. Family history: The patient denies a family history of mental illness, substance use disorder or suicide. Chemical dependency history: The patient admits only to occasional use of alcohol. He can provide no explanation for the cocaine found in urine toxicology. He today denies use of other substances including MDMA. Social history: The patient reports that he lives alone in [place]. He has 5 years of college education and says that he works [employer]. He is single with no children. He denies any history. He denies any legal history. He denies any access to guns or firearms. He denies any gnosticist or spiritual beliefs. He denies any history of abuse or neglect. Tobacco Use In Past 30 Days: 4 or Less Cigarettes/Day Alcohol Use: 2-4 Times Per Month Hospital Course Patient was admitted to a locked, inpatient psychiatric unit. A general medical consultation was obtained. Appropriate precautions were in place throughout patient's hospital stay. Patient was seen and examined on the unit by psychiatry and also visited by counselor. There was no evidence of any suicidality or homicidality on the inpatient unit. There was no evidence of any behavioral disturbance. Collateral was obtained by the counselor from the patient's mother. On the day of discharge: Patient seen and examined with nurse. Chart reviewed. Case discussed with nursing staff. Patient slept well and was reportedly in good behavioral control overnight. On my examination today, the patient is requesting discharge from the inpatient psychiatric unit today. His Bagley act will this afternoon. He denies any suicidal or homicidal ideation, intent or plan on direct questioning and contracts for safety. He reports that his mood is "fine" and I can elicit no depressive or hypomanic/manic symptoms in this patient at this time. He is future oriented. He denies any audiovisual hallucinations. I can elicit no delusional beliefs. He has no physical complaints presently. Suicide and violence risk assessment on day of discharge both suggest low imminent risk, and the patient's level of function appears to be adequate for outpatient care. The patient does not meet criteria for involuntary psychiatric hospitalization presently. I have no basis to retain the patient on the inpatient unit over his objection following the expiration of the [place] act this afternoon. In reviewing his laboratories today, I do note that the patient has a significantly elevated CK. I have discussed the matter with the nurse practitioner from the hospitalist service, and we have agreed to discharge the patient from the inpatient psychiatric unit and admit him to the inpatient medical unit for management of this problem. I have discussed this issue at some length with the patient, and he is agreeable to transfer back to the medical unit. Following discharge from the medical unit , the patient should follow-up on an outpatient basis with psychiatry. I have counseled the patient to abstain from any abuse of drugs or alcohol. I have counseled the patient to return to the psychiatric emergency room for any concerning psychiatric symptoms. The patient has been on no psychotropics during this admission, and I have written no prescriptions on discharge. Results Blood Pressure 111 / 66 Vital Signs Date Time Temp Pulse Resp B/P (MAP) Pulse Ox O2 Delivery O2 Flow Rate FiO2 12/10/17 05:45 98.2 66 18 111/66 (81) 98 Laboratory Tests Test 12/10/17 07:45 Red Blood Count 4.19 MIL/MM3 (4.50-5.90) Monocytes (%) (Auto) 8.1 % (0.0-8.0) Blood Urea Nitrogen 6 MG/DL (7-18) Albumin 3.2 GM/DL (3.4-5.0) Aspartate Amino Transf (AST/SGOT) 104 U/L (15-37) Alanine Aminotransferase (ALT/SGPT) 80 U/L (12-78) Total Creatine Kinase 3090 U/L (39-308) Summary of Procedures None done Imaging None done Pending results at discharge: No Medications # of Antipsychotic meds at D/C: 0 Approp Antipsych med options 1 - Minimum of three failed multiple trials of monotherapy. 2 - Documented plan to taper to monotherapy due to previous use of multiple meds OR cross-taper in progress at D/C. 3 - Documentation of augmentation of Clozapine. 4 - Justification other than those listed in allowable values 1-3, document here : Discharge Discharge Date: Dec 10, 2017 Discharge Diagnosis: (1) Adjustment disorder, unspecified Diagnosis: Principal ICD Code: F43.20 - Adjustment disorder, unspecified Status: Acute Pt Condition on Discharge: Stable Discharge Disposition: Disch to Another Hospital (to medical floor) Discharge Instructions Diet Instructions: As Tolerated, No Restrictions Activities you can perform: Weight Bearing as [place] Scheduled Appointment: transfer to medical floor Medication Profile: No Active Prescriptions or Reported Meds Discharge Time > 30 minutes Mental Status Examination Appearance: Appropriate Consciousness: Alert Orientation: x4 (no evidence of delirium) Motor Activity: Normal gait, Other (no motor abnormalities noted. No signs of intoxication or withdrawal noted.) Speech: Unremarkable Language: Adequate Fund of Knowledge: Adequate Attention and Concentration: Adequate Memory: Unremarkable (grossly intact on clinical exam) Mood: Appropriate Affect: Appropriate Thought Process & Associations: Intact, Linear Thought Content: Appropriate Hallucination Type: None Delusion Type: None Suicidal Ideation: No Suicidal Plan: No Suicidal Intention: No Homicidal Ideation: No Homicidal Plan: No Homicidal Intention: No Mental Status Exam Remarks Insight and judgment are fair Discharge/Advance Care Plan Health Problems: (1) Adjustment disorder, unspecified Goals to promote your health * To prevent worsening of your condition and complications * To maintain your health at the optimal level Directions to meet your goals Take your medications as prescribed Follow your dietary instruction Follow activity as directed Keep your appointments as scheduled Take your immunizations and boosters as scheduled If your symptoms worsen call your PCP, if no PCP go to Urgent Care Center or Emergency Room For 01/06 questions related to your inpatient stay or results of tests pending at discharge, please contact Dr. Martin Alcazar at Smoking is Dangerous to Your Health. Avoid second hand smoking Problem Qualifiers (1) Adjustment disorder, unspecified: Qualified Codes: F43.20 - Adjustment disorder, unspecified Martin Alcazar MD Dec 10, 2017 10:00
[2017-12-10 11:29] LABS: HEPATITIS A AB IGM NEGATIVE (NEGATIVE); HEPATITIS B CORE AB IGM NEGATIVE (NEGATIVE); HEPATITIS B SURFACE ANTIGEN NEGATIVE (NEGATIVE); HEPATITIS C AB IgG NEGATIVE (NEGATIVE)
[2017-12-10 16:00] VITALS: BP 120/71; PULSE 72; RESP 18; TEMP 98.7; O2SAT 100
--- NOTE | 2017-12-10 16:41 | HHI.HP ---
[facility] Unknown Admission Diagnosis ADJUSTMENT D/O Diagnoses: Chief Complaint: Rhabdomyolysis, KENIA Travel History International Travel<30 Days: No Contact w/Intl Traveler <30 Da: No Traveled to Known Affected Are: No History of Present Illness Written by Rizwana Stewart, acting as scribe for Dr. Timmons on 12/10/17 at 16:13. This note was transcribed by [email or web address] Benitez. I, Dr. Tommy Timmons personally performed the history, physical exam, and medical decision making; and confirmed the accuracy of the information in the transcribed note. Authenticated by Dr. Tommy Timmons on 12/10/17 at 16:25. Patient is a 37-year-old male who initially came in to the hospital ER by Police under [place] secondary to confusion, paranoia and apparent drug ingestion. He was found to have acute kidney injury, dehydration, U tox positive for cocaine. He was treated with IV fluids and observation unit before being transferred to psych unit for further evaluation. Per Review of records, per mother, patient is supposed to visit her grandmother who is dying in [place]. He was driving from [place] and stop by in [facility] because his truck was not working. 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 He has been calling his mother and father for a while and they lost track of him. As per mother, they finally found him and he was left with his father however the father went back to [place] and he went missing again in [facility]. Patient mother got a call from the hospital and he found out that he was admitted. The psychiatry unit, patient has been ordered some labs and his CK came back 3090, though his creatinine has improved. He is now admitted to inpatient unit for medical management. Patient seen and examined today in psychiatry unit before transfer plan bed. States he feels okay. Patient is asking when he can go home. Discussed expanded patient results of labs and plan for treatment of his current condition. Patient is agreeable to be transferred to inpatient and is willing to take fluids and be on IV fluids overnight. Denies pain and discomfort. Denies SOB/ dyspnea. Denies chest pain, palpitations, headaches, dizziness. Denies fevers, chills, n/v/d. Denies dysuria. Review of Systems Except as stated in HPI: all other systems reviewed are Neg Past Family Social History Past Medical History None Past Surgical History None Reported Medications Reported Meds & Active Scripts Active No Active Prescriptions or Reported Medications Allergies: Coded Allergies: No Allergy Information Available (Unverified , 12/07/17) Active Ordered Medications Current Medications Medications (Trade) Dose Ordered Sig/Leda Route Start Time Stop Time Status Last Admin (Benadryl) 50 mg HS PRN PO 12/09/17 10:30 (Tylenol) 650 mg Q4H PRN PO 12/09/17 10:30 (Milk Of Magnesia Liq) 30 ml DAILY PRN PO 12/09/17 10:30 (Mag-Al Plus Susp Liq) 30 ml Q6H PRN PO 12/09/17 10:30 (Habitrol 21 Mg Patch.24 Hr) 1 patch DAILY PRN T-DERMAL 12/09/17 10:30 (Cogentin) 1 mg Q12H PRN PO 12/09/17 10:30 (Cogentin Inj) 1 mg Q12H PRN IM 12/09/17 10:30 Miscellaneous Information 1 HS PRN T-DERMAL 12/09/17 10:45 Family History [place] any significant family medical history. States mother is healthy and and father is healthy. Social History Drinks alcohol occasionally as per his report States he smokes cigarettes daily small amount, unable to state exactly amount Denies illicit drug use, but states sometimes he uses drugs, states last use of marijuana was last year. Denies any other drug use. U tox positive for cocaine Physical Exam Vital Signs Vital Signs Date Time Temp Pulse Resp B/P (MAP) Pulse Ox O2 Delivery O2 Flow Rate FiO2 12/10/17 05:45 98.2 66 18 111/66 (81) 98 12/09/17 17:12 96.5 99 18 166/85 (112) 98 Physical Exam GENERAL: This is a well-nourished, well-developed patient, in no apparent distress. SKIN: Warm and dry. HEENT: Normocephalic. Pupils equal round and reactive. Nose without bleeding. Airway patent. Left facial area with abrasion in the forehead NECK: Trachea midline. CARDIOVASCULAR: Regular rate and rhythm without murmurs, gallops, or rubs. RESPIRATORY: Clear to auscultation. Breath sounds equal bilaterally. No wheezes , rales, or rhonchi. GASTROINTESTINAL: Abdomen soft, non-tender, nondistended. Bowel Sounds normoactive x4. MUSCULOSKELETAL: Extremities without clubbing, cyanosis, or edema. NEUROLOGICAL: Alert and awake. No focal neuro deficit. Moves all extremities. Normal speech. Laboratory Laboratory Tests Test 12/10/17 07:45 White Blood Count 6.2 Red Blood Count 4.19 Hemoglobin 13.9 Hematocrit 40.1 Mean Corpuscular Volume 95.8 Mean Corpuscular Hemoglobin 33.2 Mean Corpuscular Hemoglobin Concent 34.6 Red Cell Distribution Width 12.9 Platelet Count 200 Mean Platelet Volume 9.3 Neutrophils (%) (Auto) 64.8 Lymphocytes (%) (Auto) 24.7 Monocytes (%) (Auto) 8.1 Eosinophils (%) (Auto) 1.8 Basophils (%) (Auto) 0.6 Neutrophils # (Auto) 4.0 Lymphocytes # (Auto) 1.5 Monocytes # (Auto) 0.5 Eosinophils # (Auto) 0.1 Basophils # (Auto) 0.0 CBC Comment DIFF FINAL Differential Comment Blood Urea Nitrogen 6 Creatinine 0.74 Random Glucose 83 Total Protein 6.5 Albumin 3.2 Calcium Level 8.5 Alkaline Phosphatase 93 Aspartate Amino Transf (AST/SGOT) 104 Alanine Aminotransferase (ALT/SGPT) 80 Total Bilirubin 0.3 Sodium Level 141 Potassium Level 4.2 Chloride Level 106 Carbon Dioxide Level 29.9 Anion Gap 5 Estimat Glomerular Filtration Rate 144 Ammonia 32 Total Creatine Kinase 3090 Creatine Kinase MB 2.6 Creatine Kinase MB % 0.1 Vitamin B12 Level 753 Rapid Plasma Reagin NON-REACTIVE Hepatitis A IgM Antibody NEGATIVE Hepatitis B Surface Antigen NEGATIVE Hepatitis B Core IgM Antibody NEGATIVE Hepatitis C Antibody NEGATIVE HIV (1&2) Antibody NEGATIVE Result Diagram: 12/10/1745 12/10/1745 Caprini VTE Risk Assessment Caprini VTE Risk Assessment: No/Low Risk (score <= 1) Caprini Risk Assessment Model Point Value = 1 Point Value = 2 Point Value = 3 Point Value = 5 Age 41-60 Minor surgery BMI > 25 kg/m2 Swollen legs Varicose veins or History of unexplained or recurrent spontaneous Oral contraceptives or hormone replacement Sepsis (< 1 month) Serious lung disease, including pneumonia (< 1 month) Abnormal pulmonary function Acute myocardial infarction Congestive heart failure (< 1 month) History of inflammatory bowel disease Medical patient at bed rest Age 61-74 Arthroscopic surgery Major open surgery (> 45 min) Laparoscopic surgery (> 45 min) Malignancy Confined to bed (> 72 hours) Immobilizing plaster cast Central venous access Age >= 75 History of VTE Family history of VTE Factor V Leiden Prothrombin [id number] Lupus anticoagulant Anticardiolipin antibodies Elevated serum homocysteine Heparin-induced thrombocytopenia Other congenital or acquired thrombophilia Stroke (< 1 month) Elective arthroplasty Hip, pelvis, or leg fracture Acute spinal cord injury (< 1 month) Prophylaxis Regimen Total Risk Factor Score Risk Level Prophylaxis Regimen 0-1 Low Early ambulation 2 Moderate Order ONE of the following: *Sequential Compression Device (SCD) *Heparin 5000 units SQ BID 3-4 Higher Order ONE of the following medications: *Heparin 5000 units SQ TID *Enoxaparin/Lovenox 40 mg SQ daily (WT < 150 kg, CrCl > 30 mL/min) *Enoxaparin/Lovenox 30 mg SQ daily (WT < 150 kg, CrCl > 10-29 mL/min) *Enoxaparin/Lovenox 30 mg SQ BID (WT < 150 kg, CrCl > 30 mL/min) AND/OR *Sequential Compression Device (SCD) 5 or more Highest Order ONE of the following medications: *Heparin 5000 units SQ TID (Preferred with Epidurals) *Enoxaparin/Lovenox 40 mg SQ daily (WT < 150 kg, CrCl > 30 mL/min) *Enoxaparin/Lovenox 30 mg SQ daily (WT < 150 kg, CrCl > 10-29 mL/min) *Enoxaparin/Lovenox 30 mg SQ BID (WT < 150 kg, CrCl > 30 mL/min) AND *Sequential Compression Device (SCD) Assessment and Plan Problem List: (1) Rhabdomyolysis ICD Code: M62.82 - Rhabdomyolysis Status: Acute (2) Acute kidney injury ICD Code: N17.9 - Acute kidney failure, unspecified Status: Acute (3) Adjustment disorder, unspecified ICD Code: F43.20 - Adjustment disorder, unspecified Status: Acute (4) Elevated LFTs ICD Code: R79.89 - Other specified abnormal findings of blood chemistry Status: Acute Assessment and Plan Patient is a 37-year-old male with no known primary medical history who came in under [place] act by police department secondary to confusion , paranoia and apparent drug ingestion. Admitted to inpatient psychiatry unit but found to have rhabdo and was transferred to inpatient medical floor. Rhabdomyolysis, acute - CK 3090 - Start IV fluids 300 ML's an hour. - Check CK, BMP at 7 PM, and 6 AM - If improved may discharge in the morning. Acute kidney injury - Avoid nephrotoxins - Continue IV fluid for hydration as above - Improved Drug intoxication, questionable abuse Adjustment disorder - Utox Positive for cocaine. Patient denies cocaine use. - Counseled - Psychiatry to follow. Elevated LFTs - RPR nonreactive, hepatitis panel negative, HIV negative - Improving DVT prop early ambulation Code Status Full code Discussed Condition With Patient, nursing, Dr. Alcazar Physician Certification 2 Midnight Certification Type: Admission for Inpatient Services Order for Inpatient Services The services are ordered in accordance with Medicare regulations or non- Medicare payer requirements, as applicable. In the case of services not specified as inpatient-only, they are appropriately provided as inpatient services in accordance with the 2-midnight benchmark. Estimated LOS (days): 2 days is the estimated time the patient will need to remain in the hospital, assuming treatment plan goals are met and no additional complications. Post-Hospital Plan: Home Problem Qualifiers (1) Adjustment disorder, unspecified: Qualified Codes: F43.20 - Adjustment disorder, unspecified Rizwana Fortune Dec 10, 2017 16:41 Viki Timmons DO Dec 10, 2017 17:52
[2017-12-10] MEDS ORDERED: SODIUM CHLOR 0.9% 1000 ML INJ 1,000 ML IV SCH (16:45)
== END 2017-12-10 15:30 | disposition short-term general hospital (02) | DRG 882 ==
LOC: EDBD → H270 20:00 → N04A 12-10 15:36
PROVIDERS: ADMIT Psychiatry & Neurology Psychiatry; ATTEND Psychiatry & Neurology Psychiatry
DX: F43.20 Adjustment disorder, unspecified (principal); F14.120 Cocaine abuse with intoxication, uncomplicated; F17.210 Nicotine dependence, cigarettes, uncomplicated
CPT/HCPCS: 80053; 80074; 82140; 82550; 82552; 82607; 85025; 86592; 86703; J7030

== ENCOUNTER 2017-12-10 13:59 | Inpatient (IN) | payer SELFPAY ==
[2017-12-10] MEDS ORDERED: SODIUM CHLOR 0.9% 1000 ML INJ 1,000 ML IV SCH (21:13)
[2017-12-10] MEDS ORDERED: NALOXONE HCL 0.4 MG/ML AMP IV PUSH PRN (21:15)
[2017-12-10] MEDS ORDERED: MAGNESIUM HYDROXIDE SUSP 30 ML CUP PO PRN (21:15)
[2017-12-10] MEDS ORDERED: SODIUM CHLORIDE 0.9% FLUSH 10 ML FLUSH IV FLUSH PRN (21:15)
[2017-12-10] MEDS ORDERED: ONDANSETRON HCL 4 MG/2 ML VIAL IVP PRN (21:15)
[2017-12-10] MEDS ORDERED: BISACODYL 10 MG SUPP RECTAL PRN (21:15)
[2017-12-10] MEDS ORDERED: SENNOSIDES 8.6 MG TAB PO PRN (21:15)
[2017-12-10] MEDS ORDERED: ACETAMINOPHEN 325 MG TAB PO PRN (21:15)
[2017-12-10] MEDS ORDERED: LACTULOSE SYRUP 20 GM/30 ML CUP PO PRN (21:15)
--- NOTE | 2017-12-10 21:17 | HHI.HP ---
HPI Service [facility] [place] Primary Care Physician Unknown Admission Diagnosis Diagnoses: Chief Complaint: Rhabdomyolysis Travel History International Travel<30 Days: No Contact w/Intl Traveler <30 Da: No Traveled to Known Affected Are: No History of Present Illness Patient is a 37-year-old male who initially came in to the hospital ER by Police under [place] secondary to confusion, paranoia and apparent drug ingestion. He was found to have acute kidney injury, dehydration, U tox positive for cocaine. He was treated with IV fluids and observation unit before being transferred to psych unit for further evaluation. Per Review of records, per mother, patient is supposed to visit her grandmother who is dying in [place]. He was driving from [place] and stop by in [facility] because his truck was not working. 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 He has been calling his mother and father for a while and they lost track of him. As per mother, they finally found him and he was left with his father however the father went back to [place] and he went missing again in [facility] area. Patient mother got a call from the hospital and he found out that he was admitted. The psychiatry unit, patient has been ordered some labs and his CK came back 3090, though his creatinine has improved. He is now admitted to inpatient unit for medical management. Patient seen and examined today in psychiatry unit before transfer plan bed. States he feels okay. Patient is asking when he can go home. Discussed expanded patient results of labs and plan for treatment of his current condition. Patient is agreeable to be transferred to inpatient and is willing to take fluids and be on IV fluids overnight. Denies pain and discomfort. Denies SOB/ dyspnea. Denies chest pain, palpitations, headaches, dizziness. Denies fevers, chills, n/v/d. Denies dysuria. Review of Systems Except as stated in HPI: all other systems reviewed are Neg Past Family Social History Past Medical History No significant past medical history. Past Surgical History No significant surgical history. Reported Medications None. Allergies: Coded Allergies: No Allergy Information Available (Unverified , 12/07/17) Family History Denies any significant family medical history. States mother is healthy and and father is healthy. Social History Drinks alcohol occasionally as per his report States he smokes cigarettes daily small amount, unable to state exactly amount Denies illicit drug use, but states sometimes he uses drugs, states last use of marijuana was last year. Denies any other drug use. UDS positive for cocaine on 12/08/2017. Physical Exam Physical Exam GENERAL: This is a well-nourished, well-developed patient, in no apparent distress. SKIN: No rashes, ecchymoses or lesions. Cool and dry. HEAD: Atraumatic. Normocephalic. No temporal or scalp tenderness. EYES: Pupils equal round and reactive. Extraocular motions intact. No scleral icterus. No injection or drainage. ENT: Nose without bleeding, purulent drainage or septal hematoma. Throat without erythema, tonsillar hypertrophy or exudate. Uvula midline. Airway patent. NECK: Trachea midline. No JVD or lymphadenopathy. Supple, nontender, no meningeal signs. CARDIOVASCULAR: Regular rate and rhythm without murmurs, gallops, or rubs. RESPIRATORY: Clear to auscultation. Breath sounds equal bilaterally. No wheezes , rales, or rhonchi. GASTROINTESTINAL: Abdomen soft, non-tender, nondistended. No hepato-splenomegaly , or palpable masses. No guarding. MUSCULOSKELETAL: Extremities without clubbing, cyanosis, or edema. No joint tenderness, effusion, or edema noted. No calf tenderness. Negative Homans sign bilaterally. NEUROLOGICAL: Awake and alert. Cranial nerves II through XII intact. Motor and sensory grossly within normal limits. Five out of 5 muscle strength in all muscle groups. Normal speech. Laboratory Total CK 3090 --> 2342. Caprini VTE Risk Assessment Caprini VTE Risk Assessment: No/Low Risk (score <= 1) Caprini Risk Assessment Model Point Value = 1 Point Value = 2 Point Value = 3 Point Value = 5 Age 41-60 Minor surgery BMI > 25 kg/m2 Swollen legs Varicose veins or History of unexplained or recurrent spontaneous Oral contraceptives or hormone replacement Sepsis (< 1 month) Serious lung disease, including pneumonia (< 1 month) Abnormal pulmonary function Acute myocardial infarction Congestive heart failure (< 1 month) History of inflammatory bowel disease Medical patient at bed rest Age 61-74 Arthroscopic surgery Major open surgery (> 45 min) Laparoscopic surgery (> 45 min) Malignancy Confined to bed (> 72 hours) Immobilizing plaster cast Central venous access Age >= 75 History of VTE Family history of VTE Factor V Leiden Prothrombin [id number] Lupus anticoagulant Anticardiolipin antibodies Elevated serum homocysteine Heparin-induced thrombocytopenia Other congenital or acquired thrombophilia Stroke (< 1 month) Elective arthroplasty Hip, pelvis, or leg fracture Acute spinal cord injury (< 1 month) Prophylaxis Regimen Total Risk Factor Score Risk Level Prophylaxis Regimen 0-1 Low Early ambulation 2 Moderate Order ONE of the following: *Sequential Compression Device (SCD) *Heparin 5000 units SQ BID 3-4 Higher Order ONE of the following medications: *Heparin 5000 units SQ TID *Enoxaparin/Lovenox 40 mg SQ daily (WT < 150 kg, CrCl > 30 mL/min) *Enoxaparin/Lovenox 30 mg SQ daily (WT < 150 kg, CrCl > 10-29 mL/min) *Enoxaparin/Lovenox 30 mg SQ BID (WT < 150 kg, CrCl > 30 mL/min) AND/OR *Sequential Compression Device (SCD) 5 or more Highest Order ONE of the following medications: *Heparin 5000 units SQ TID (Preferred with Epidurals) *Enoxaparin/Lovenox 40 mg SQ daily (WT < 150 kg, CrCl > 30 mL/min) *Enoxaparin/Lovenox 30 mg SQ daily (WT < 150 kg, CrCl > 10-29 mL/min) *Enoxaparin/Lovenox 30 mg SQ BID (WT < 150 kg, CrCl > 30 mL/min) AND *Sequential Compression Device (SCD) Assessment and Plan Problem List: (1) Rhabdomyolysis ICD Code: M62.82 - Rhabdomyolysis Status: Acute (2) Adjustment disorder, unspecified ICD Code: F43.20 - Adjustment disorder, unspecified Status: Acute Assessment and Plan Patient is a 37-year-old male with no known primary medical history who came in under [place] act by police department secondary to confusion , paranoia and apparent drug ingestion. Admitted to inpatient psychiatry unit but found to have rhabdo and was transferred to inpatient medical floor. Rhabdomyolysis, acute - CK 3090 --> 2342 - Received fluid 300 ML's an hour. - Since CK is trending down and below 5000, we can discharge patient. - Patient and patient's mother desire to go home tonight. Acute kidney injury - Creatinine 1.90 on 12/07/2017 --> 0.74. - Avoid nephrotoxins - Continue IV fluid for hydration as above Drug intoxication, questionable abuse Adjustment disorder Alcohol abuse - Utox Positive for cocaine. Patient denies cocaine use. - Discussed with patient regarding danger of continued alcohol abuse. Patient verbalized understanding. - Counseled Elevated LFTs - RPR nonreactive, hepatitis panel negative, HIV negative - Improving DVT prop early ambulation Essentially, patient was discharged from psychiatry floor to the medical floor because of the rhabdomyolysis. Patient was keen on going home. I discussed at length with patient's mother who agrees with discharge as well. We did not know which way Total CK would go. Sometimes it trends up, plateaus then trends down. Although kidney injury is less likely with CK below 5000, because we did not know which way total CK might trend, we agreed with medical admission and provided normal saline 300cc/hour. Repeat CK shows 3090 --> 2342. Thus, patient was discharged home with PCP follow up and repeat labs within 3-5 days. Patient was advised to keep himself well hydrated and avoid alcohol as well as other illicit drugs. Discharge patient to home Condition on discharge: Improved Regular Diet as tolerated Ad Marianna activity Rx written: None. Follow-up with primary care physician within one week, CK, BMP in 3-5 days. Physician Certification 2 Midnight Certification Type: Admission for Inpatient Services Order for Inpatient Services The services are ordered in accordance with Medicare regulations or non- Medicare payer requirements, as applicable. In the case of services not specified as inpatient-only, they are appropriately provided as inpatient services in accordance with the 2-midnight benchmark. Estimated LOS (days): 1 days is the estimated time the patient will need to remain in the hospital, assuming treatment plan goals are met and no additional complications. Post-Hospital Plan: Home Notes: Patient's total CK shows downward trend with supportive care with IV normal saline. Patient was discharged on the same day he was discharged to the medical floor from psychiatry floor. Problem Qualifiers (1) Rhabdomyolysis: Qualified Codes: M62.82 - Rhabdomyolysis Viki Timmons DO Dec 10, 2017 21:17
[2017-12-11] MEDS ORDERED: SODIUM CHLORIDE 0.9% FLUSH 10 ML FLUSH IV FLUSH SCH (09:00)
== END 2017-12-10 23:25 | disposition home or self-care (01) | DRG 558 ==
LOC: N04A 15:36 → EDBD 15:36
PROVIDERS: ADMIT Hospitalist; ATTEND Hospitalist
DX: M62.82 Rhabdomyolysis (principal); N17.9 Acute kidney failure, unspecified; E86.0 Dehydration; F17.210 Nicotine dependence, cigarettes, uncomplicated; F43.20 Adjustment disorder, unspecified; F10.10 Alcohol abuse, uncomplicated; R79.89 Other specified abnormal findings of blood chemistry; F19.120 Other psychoactive substance abuse with intoxication, uncomplicated
CPT/HCPCS: 82550; 82552; J7030